=== PATIENT | female | born 1960 | race African-American/Black ===

== ENCOUNTER 2024-03-03 09:47 | Outpatient (CLI) | payer MEDICARE, MEDICAID ==
[2024-03-03] MEDS ORDERED: Iopamidol 300 61% 100 ML VIAL FS ONE (14:27)
== END 2024-03-03 09:48 | disposition home or self-care (01) ==
LOC: CSHCT 09:47
PROVIDERS: ATTEND Nurse Practitioner Family
DX: G44.229 Chronic tension-type headache, not intractable (principal)
CPT/HCPCS: 70470; 82565